=== PATIENT | male | born 1985 | race Caucasian/White ===

== ENCOUNTER 2016-03-31 09:48 | Emergency (ER) | payer OTHER ==
[~2016-03-31] VITALS: Ht 175.3 cm; Wt 83.9 kg
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
[2016-03-31] MEDS ORDERED: NAPROSYN500 M1 PO (12:56)
[2016-03-31] MEDS ORDERED: CYCLOBENZAPRINE5 M2 PO (12:56)
[2016-03-31 12:57] VITALS: BP 141/84
== END 2016-03-31 12:59 ==
LOC: ERH 09:48
DX: M54.2 Cervicalgia (principal); V43.52XA Car driver injured in collision with other type car in traffic accident, initial encounter; Y92.488 Other paved roadways as the place of occurrence of the external cause

== ENCOUNTER 2017-09-20 16:48 | Emergency (ER) | payer OTHER ==
[~2017-09-20] VITALS: Ht 175.3 cm; Wt 85.3 kg
[~2017-09-20 16:48] MED LIST: CYCLOBENZAPRINE5 M2 PO; NAPROSYN500 M1 PO
[2017-09-20 16:53] VITALS: BP 144/82
[2017-09-20 17:14] LABS: ABSOLUTE BASOPHIL COUNT 0 /CUMM (0.0-0.2); ABSOLUTE EOSINOPHIL COUNT 0 /CUMM (0.0-0.7); ABSOLUTE GRANULOCYTE CT 7.7 /CUMM (1.4-6.5); ABSOLUTE LYMPH COUNT 1.1 /CUMM (1.2-3.4); ABSOLUTE MONOCYTE COUNT 0.5 /CUMM (0.10-0.60); BASOPHIL % 0.2 % (0.0-2.0); EOSINOPHIL % 0.3 % (0-5); GRANULOCYTE % 82.9 % (42.2-75.2); HEMATOCRIT 41.3 % (42-52); MEAN CORPUSCULAR HGB 31.1 PG (27.0-31.0); MEAN CORPUSCULAR HGB CONC 33.3 G/DL (33.0-37.0); MEAN CORPUSCULAR VOLUME 93.5 FL (80.0-94.0); MEAN PLATELET VOLUME 7.6 FL (7.4-10.4); PLATELET COUNT 378 /CUMM (130-400); RBC DISTRIBUTION WIDTH 13.3 % (11.5-14.5); RED BLOOD CELL CT 4.42 /CUMM (4.70-6.10); WHITE BLOOD CELL COUNT 9.2 /CUMM (4.8-10.8)
--- NOTE | 2017-09-20 18:04 | ED GENERAL ADULT ---
History of Present Illness General Chief Complaint: Fever Stated Complaint: FEVER Source: patient Exam Limitations: no limitations Vital Signs & Intake/Output Vital Signs & Intake/Output Vital Signs Date Time Temp Pulse Resp B/P B/P Pulse O2 O2 Flow FiO2 Mean Ox Delivery Rate 09/20 1653 98.2 90 18 144/82 98 Room Air Allergies Coded Allergies: NO KNOWN ALLERGIES (09/20/17) Reconcile Medications Cyclobenzaprine HCl 5 MG TABLET 1 TAB PO TIDPRN PRN muscle spasms Metoclopramide HCl (Reglan) 10 MG TABLET 1 TAB PO 4 TIMES/DAY PRN NAUSEA 30 minutes before meals and bedtime Naproxen (Naprosyn) 500 MG TABLET 1 TAB PO BID PRN pain and inflammation Ondansetron (Zofran Odt) 4 MG TAB.RAPDIS 1 TAB SL TID PRN NAUSEA Triage Note: 32 YEAR OLD MALE TO ER WITH COMPLAINTS OF ALL OVER BODY ACHES , PT CALLED HIS PMD AND TOLD HIM ABOUT A BULLS EYE ON R UPPER THIGH AND HE SENT HIM FOR OUT PT BLOOD WORK AT [facility] FOR LYME DISEASE , PT IS UNSURE OF RESULTS. PT STARTED NOT TO FEEL WELL LAST PM AND WENT TO WALK IN WHERE THEY STARTED HIM ON DOXY FOR LYME. SINCE 0 PT HAS BEEN FEELING WEAK , ACHEY ALL OVER , FEVERS AND CHILLS , AFEBRILE AT THIS TIME . Triage Nurses Notes Reviewed? yes Onset: Gradual Duration: day(s): (4), constant, continues in ED, getting worse Timing: single episode today Injury Environment: home Severity: mild, moderate Severity Numbers: 6 No Modifying Factors: none HPI: 32-year-old male with no medical history presents for evaluation of fatigue, weakness, body aches and rash. Patient reports that several days ago he noted a bull's-eye rash to his right thigh and left upper extremity. He called his primary care doctor sent in for blood work including Lyme disease testing but he does not know the results. He went to an urgent care yesterday and was started on doxycycline which he took 1 dose of today. Patient reports that after taking the dose he felt nauseous and an episode of vomiting. He denies any abdominal pain. He does report he has had subjective fever at home. The rashes are fading rapidly and her no longer visible. He denies chest pain shortness of breath diarrhea joint swelling. He has been able tolerate fluids. No sick contacts recent travel hemoptysis or lower extremity edema. (Gaurav Grady) Past History Travel History Traveled to [place] past 21 day No Medical History Any Pertinent Medical History? see below for history Neurological: NONE EENT: NONE Cardiovascular: NONE Respiratory: NONE Gastrointestinal: NONE Hepatic: NONE Renal: NONE Musculoskeletal: NONE Psychiatric: NONE Endocrine: NONE Surgical History Surgical History: non-contributory Psychosocial History What is your primary language Micronesian Tobacco Use: Never used ETOH Use: denies use Illicit Drug Use: denies illicit drug use Family History Hx Contributory? No (Gaurav Grady) Review of Systems Review of Systems Constitutional: Reports: chills, diaphoresis, fever, malaise, weakness. EENTM: Reports: no symptoms. Respiratory: Reports: no symptoms. Cardiovascular: Reports: no symptoms. GI: Reports: see HPI, nausea, vomiting. Genitourinary: Reports: no symptoms. Musculoskeletal: Reports: see HPI, joint pain, muscle pain, muscle stiffness. Skin: Reports: no symptoms. Neurological/Psychological: Reports: no symptoms. Hematologic/Endocrine: Reports: no symptoms. Immunologic/Allergic: Reports: no symptoms. All Other Systems: Reviewed and Negative (Gaurav Grady) Physical Exam Physical Exam General Appearance: well developed/nourished, no apparent distress, alert, awake Head: atraumatic, normal appearance Eyes: Bilateral: normal appearance, PERRL, EOMI. Ears, Nose, Throat: normal pharynx, normal ENT inspection, hearing grossly normal Neck: normal inspection, supple, full range of motion Respiratory: normal breath sounds, chest non-tender, no respiratory distress, lungs clear Cardiovascular: regular rate/rhythm, normal peripheral pulses Peripheral Pulses: 2+ radial (R), 2+ radial (L) Gastrointestinal: soft, non-tender Back: normal inspection, normal range of motion Extremities: THERE IS A FAINT AREA OF ERYTHEMA OVER THE RIGHT ANTERIOR THIGH. UNABLE TO MAKE OUT A BULL'S-EYE RASH. nO FOCAL FLUCTUANT AREAS OR DISCHARGE NO LYMPHATIC STREAKING Neurologic/Psych: no motor/sensory deficits, awake, alert, oriented x 3, normal gait Skin: intact, normal color, warm/dry, rash Lymphatic: no anterior cervical mack Core Measures ACS in differential dx? No CVA/TIA Diagnosis: No Sepsis Present: No Sepsis Focused Exam Completed? No (Black PA,Gaurav) Progress Differential Diagnoses I considered the following diagnoses in my evaluation of the patient: [Lyme disease/tickborne illness, dehydration, gastroenteritis, gastritis, viral syndrome, cellulitis, electrolyte abnormality] Plan of Care: Orders Procedure Date/time Status Add-on Test (ER Only) 09/20 1750 Active Add-on Test (ER Only) 09/20 174 Active HEPATITIS PANEL 09/20 170 Active URINALYSIS 09/20 165 Active LYME TITRE 09/20 165 Active LIPASE 09/20 165 Active COMPREHENSIVE METABOLIC PANEL 09/20 165 Active CBC WITHOUT DIFFERENTIAL 09/20 165 Complete Laboratory Tests 09/20/17 1704: Lyme Disease Antibody Pending 09/20/17 170: Hepatitis A IgM Ab Pending, Hep Bs Antigen Pending, Hep B Core IgM Ab Conf Pending, Hepatitis C Antibody Pending 09/20/17 170: Anion Gap 14, Estimated GFR > 60, BUN/Creatinine Ratio 21.4, Glucose 125 H, Calcium 10.1, Total Bilirubin 1.4 H, AST 83 H, ALT 222 H, Alkaline Phosphatase 195 H, Total Protein 8.6 H, Albumin 4.6, Globulin 4.0, Albumin/ Globulin Ratio 1.2, Lipase 135, CBC w Diff NO MAN DIFF REQ, RBC 4.42 L, MCV 93.5, MCH 31.1 H, MCHC 33.3, RDW 13.3, MPV 7.6, Gran % 82.9 H, Lymphocytes % 11.5 L, Monocytes % 5.1, Eosinophils % 0.3, Basophils % 0.2, Absolute Granulocytes 7.7 H, Absolute Lymphocytes 1.1 L, Absolute Monocytes 0.5, Absolute Eosinophils 0, Absolute Basophils 0, A. phagocytophilum IgG Pending, A. phagocytophilum IgM Pending, Anaplasma Comment Pending, A.phagocytophilum Intrp Pending Patient is here with multiple symptoms including weakness fatigue subjective fevers sweats chills and joint pains and rash. Patient reports he had a bull's- eye rash on his right thigh that is starting to fade. He was started on DOXY yesterday took a single dose and vomited. He denies any chest pain shortness of breath or belly pain. His vital signs are stable is afebrile here. Patient was medicated with Toradol and Zofran here. Labs ordered. Blood work is showing a transaminitis. Acute hepatitis panel added on. On reevaluation patient's abdomen remained soft and nontender no right upper quadrant pain. He is not jaundiced. He denies alcohol use. This may confirm a diagnosis of tickborne illness. Patient was able tolerate food and fluids here. He was instructed to continue doxycycline as directed for the full course. Follow up on Lyme titer. Continue Tylenol and IV Profen as needed for pain and fevers. Zofran Reglan for nausea. Discussed return precautions. Patient agrees the plan Initial ED EKG: none (Gaurav Grady) Departure Departure Disposition: HOME OR SELF CARE Condition: Stable Clinical Impression Primary Impression: Lyme disease Referrals: Saúl CASTILLO,Dom Andersen (PCP/Family) Additional Instructions: Rest and drink plenty of fluids. Zofran and Reglan as needed for nausea. Tylenol ibuprofen for body aches and headaches. Make a follow-up with her primary care doctor's review all results of today's visit. He also need follow- up on the hepatitis and tickborne illness testing. Continue doxycycline for full course. Monitor with any concern. Departure Forms: Customer Survey General Discharge Information Prescriptions: Current Visit Scripts Metoclopramide HCl (Reglan) 1 TAB PO 4 TIMES/DAY PRN NAUSEA #30 TAB 30 minutes before meals and bedtime Ondansetron (Zofran Odt) 1 TAB SL TID PRN NAUSEA #21 TAB (Gaurav Grady) PA/[employer] PROFESSIONAL Co-Sign Statement Statement: ED Attending supervision documentation- [] I saw and evaluated the patient. I have also reviewed all the pertinent lab results and diagnostic results. I agree with the findings and the plan of care as documented in the PA's/[employer] PROFESSIONAL's documentation. [x] I have reviewed the ED Record and agree with the PA's/[employer] SERVICES PROFESSIONAL's documentation. [] Additions or exceptions (if any) to the PAs/[employer] SERVICES PROFESSIONAL's note and plan are summarized below: [] (Dickson Chung DO) Critical Care Note Critical Care Note Critical Care Time: non-applicable (Gaurav Grady)
[2017-09-20] MEDS ORDERED: ZOFRAN ODT4 M1 SL (18:28)
[2017-09-20] MEDS ORDERED: REGLAN10 M1 PO (18:28)
== END 2017-09-20 18:41 ==
LOC: ERH 16:48
PROVIDERS: Physician Assistant Medical
DX: A69.20 Lyme disease, unspecified (principal)
CPT/HCPCS: 86618; 86666; 96372; J1885; J3101